=== PATIENT | male | born 1935 | race Hispanic/Latino ===

== ENCOUNTER → 2020-02-03 | Outpatient (CLI) | payer OTHER | END | disposition home or self-care (01) | LOC: RAH 14:11 | PROVIDERS: ATTEND Family Medicine | DX: I73.9 Peripheral vascular disease, unspecified (principal) | CPT/HCPCS: 93925 ==

== ENCOUNTER → 2020-03-29 | Outpatient (CLI) | payer OTHER | END | disposition home or self-care (01) | LOC: SHCH 08:29 | PROVIDERS: ATTEND Internal Medicine Cardiovascular Disease | DX: I87.2 Venous insufficiency (chronic) (peripheral) (principal) | CPT/HCPCS: 93970 ==

== ENCOUNTER → 2021-02-18 | Outpatient (CLI) | payer OTHER | END | disposition home or self-care (01) | LOC: SHCH 14:19 | PROVIDERS: ATTEND Internal Medicine Cardiovascular Disease | DX: I87.2 Venous insufficiency (chronic) (peripheral) (principal) | CPT/HCPCS: 93971 ==

== ENCOUNTER → 2022-07-14 | Outpatient (CLI) | payer OTHER | END | disposition home or self-care (01) | LOC: RAH 10:50 | PROVIDERS: ATTEND Family Medicine | DX: I70.203 Unspecified atherosclerosis of native arteries of extremities, bilateral legs (principal) | CPT/HCPCS: 93925 ==

== ENCOUNTER → 2022-11-04 | Outpatient (CLI) | payer OTHER | END | disposition home or self-care (01) | LOC: SHCH 14:03 | PROVIDERS: ATTEND Internal Medicine Cardiovascular Disease | DX: I87.2 Venous insufficiency (chronic) (peripheral) (principal); I70.203 Unspecified atherosclerosis of native arteries of extremities, bilateral legs | CPT/HCPCS: 93925; 93970 ==

== ENCOUNTER → 2023-02-16 | Outpatient (CLI) | payer OTHER ==
[2023-02-16 12:20] LABS: BASOPHILS # (AUTO) 0.02 K/uL (0.00-0.20); BASOPHILS % (AUTO) 0.3 % (0.0-5.0); EOSINOPHILS # (AUTO) 0.13 K/uL (0.00-0.70); EOSINOPHILS % (AUTO) 2.1 % (0.0-8.0); HEMATOCRIT 40.2 % (42-54); IMMATURE GRANULOCYTE ABSOLUTE 0.02 K/uL (0-1); LYMPHOCYTES # (AUTO) 2.1 K/uL (1.0-4.8); LYMPHOCYTES % (AUTO) 33.2 % (21.0-51.0); MEAN CORPUSCULAR HEMOGLOBIN 30.6 pg (27.0-33.0); MEAN CORPUSCULAR HGB CONC 32.8 g/dL (32.0-36.0); MEAN CORPUSCULAR VOLUME 93.1 fL (79-99); MONOCYTES # (AUTO) 0.4 K/uL (0.1-1.0); MONOCYTES % (AUTO) 7.1 % (3.0-13.0); NEUTROPHILS # (AUTO) 3.6 K/uL (1.8-7.7); PLATELET COUNT (AUTO) 158 K/uL (130-400); RED BLOOD CELL COUNT(AUTO) 4.32 MIL/uL (4.50-6.20); RED CELL DISTRIBUTION WIDTH 12.6 % (11.0-15.5); WHITE BLOOD COUNT (AUTO) 6.2 K/uL (4.8-10.8)
[2023-02-16 12:26] LABS: CREATININE 0.9 mg/dL (0.5-1.5); POTASSIUM 4.1 mmol/L (3.5-5.1)
[2023-02-16 12:27] LABS: INR 0.97 (0.85-1.15); PROTHROMBIN TIME 11.3 SEC (9.6-11.6)
[2023-02-16 12:28] LABS: PARTIAL THROMBOPLASTIN TIME 31.8 SEC (26.3-35.5)
== END | disposition home or self-care (01) ==
LOC: LAB 09:18
PROVIDERS: ATTEND Internal Medicine Cardiovascular Disease
DX: I87.2 Venous insufficiency (chronic) (peripheral) (principal); I87.1 Compression of vein; I73.9 Peripheral vascular disease, unspecified; I10 Essential (primary) hypertension; R60.0 Localized edema; M79.89 Other specified soft tissue disorders; E78.5 Hyperlipidemia, unspecified; Z79.82 Long term (current) use of aspirin; Z79.899 Other long term (current) drug therapy
CPT/HCPCS: 36415; 80048; 85025; 85610; 85730

== ENCOUNTER → 2023-06-30 | Outpatient (CLI) | payer OTHER ==
[2023-06-30 12:11] LABS: BASOPHILS # (AUTO) 0.02 K/uL (0.00-0.20); BASOPHILS % (AUTO) 0.3 % (0.0-5.0); EOSINOPHILS # (AUTO) 0.24 K/uL (0.00-0.70); EOSINOPHILS % (AUTO) 3.5 % (0.0-8.0); HEMATOCRIT 38.6 % (42-54); IMMATURE GRANULOCYTE ABSOLUTE 0.02 K/uL (0-1); LYMPHOCYTES # (AUTO) 2.2 K/uL (1.0-4.8); LYMPHOCYTES % (AUTO) 31.4 % (21.0-51.0); MEAN CORPUSCULAR HEMOGLOBIN 30.9 pg (27.0-33.0); MEAN CORPUSCULAR HGB CONC 33.7 g/dL (32.0-36.0); MEAN CORPUSCULAR VOLUME 91.7 fL (79-99); MONOCYTES # (AUTO) 0.5 K/uL (0.1-1.0); MONOCYTES % (AUTO) 6.9 % (3.0-13.0); NEUTROPHILS % (AUTO) 57.6 % (40.0-77.0); PLATELET COUNT (AUTO) 156 K/uL (130-400); RED BLOOD CELL COUNT(AUTO) 4.21 MIL/uL (4.50-6.20); WHITE BLOOD COUNT (AUTO) 6.9 K/uL (4.8-10.8)
[2023-06-30 12:15] LABS: CREATININE 0.8 mg/dL (0.5-1.3); POTASSIUM 4.5 mmol/L (3.5-5.1)
[2023-06-30 12:22] LABS: INR 0.96 (0.85-1.15); PROTHROMBIN TIME 11.4 SEC (9.6-11.6)
[2023-06-30 12:23] LABS: PARTIAL THROMBOPLASTIN TIME 32.9 SEC (26.3-35.5)
== END | disposition home or self-care (01) ==
LOC: LAB 09:21
PROVIDERS: ATTEND Internal Medicine Cardiovascular Disease
DX: I87.1 Compression of vein (principal); I87.2 Venous insufficiency (chronic) (peripheral); I10 Essential (primary) hypertension; I73.9 Peripheral vascular disease, unspecified; E78.5 Hyperlipidemia, unspecified; M79.605 Pain in left leg; M79.604 Pain in right leg; Z95.820 Peripheral vascular angioplasty status with implants and grafts; Z79.899 Other long term (current) drug therapy; Z79.82 Long term (current) use of aspirin; Z79.02 Long term (current) use of antithrombotics/antiplatelets
CPT/HCPCS: 36415; 80048; 85025; 85610; 85730

== ENCOUNTER → 2023-09-29 | Outpatient (CLI) | payer OTHER ==
[2023-09-29 12:00] LABS: BASOPHILS # (AUTO) 0.02 K/uL (0.00-0.20); BASOPHILS % (AUTO) 0.3 % (0.0-5.0); EOSINOPHILS # (AUTO) 0.16 K/uL (0.00-0.70); EOSINOPHILS % (AUTO) 2.3 % (0.0-8.0); HEMATOCRIT 37.7 % (42-54); IMMATURE GRANULOCYTE ABSOLUTE 0.01 K/uL (0-1); LYMPHOCYTES # (AUTO) 1.9 K/uL (1.0-4.8); LYMPHOCYTES % (AUTO) 27.2 % (21.0-51.0); MEAN CORPUSCULAR HEMOGLOBIN 30.6 pg (27.0-33.0); MEAN CORPUSCULAR VOLUME 90.2 fL (79-99); MONOCYTES # (AUTO) 0.5 K/uL (0.1-1.0); MONOCYTES % (AUTO) 7.4 % (3.0-13.0); NEUTROPHILS # (AUTO) 4.3 K/uL (1.8-7.7); NEUTROPHILS % (AUTO) 62.7 % (40.0-77.0); PLATELET COUNT (AUTO) 149 K/uL (130-400); RED BLOOD CELL COUNT(AUTO) 4.18 MIL/uL (4.50-6.20); RED CELL DISTRIBUTION WIDTH 12.8 % (11.0-15.5); WHITE BLOOD COUNT (AUTO) 6.9 K/uL (4.8-10.8)
[2023-09-29 12:19] LABS: ALBUMIN 3.4 g/dL (3.5-5.0); BILIRUBIN,TOTAL 0.7 mg/dL (0.2-1.0); CREATININE 0.8 mg/dL (0.5-1.3); POTASSIUM 4.5 mmol/L (3.5-5.1); TOTAL PROTEIN, SERUM 7.4 g/dL (6.0-8.3)
== END | disposition home or self-care (01) ==
LOC: LAB 10:44
PROVIDERS: ATTEND Internal Medicine Cardiovascular Disease
DX: R55 Syncope and collapse (principal); R00.1 Bradycardia, unspecified
CPT/HCPCS: 36415; 80053; 83880; 85025

== ENCOUNTER 2023-12-08 21:03 | Observation (INO) | payer OTHER ==
[~2023-12-08] VITALS: Ht 182.9 cm; Wt 98.8 kg
[2023-12-08 21:36] LABS: BASOPHILS # (AUTO) 0.01 K/uL (0.00-0.20); BASOPHILS % (AUTO) 0.1 % (0.0-5.0); EOSINOPHILS # (AUTO) 0.08 K/uL (0.00-0.70); EOSINOPHILS % (AUTO) 0.7 % (0.0-8.0); HEMATOCRIT 37.6 % (42-54); IMMATURE GRANULOCYTE ABSOLUTE 0.03 K/uL (0-1); LYMPHOCYTES # (AUTO) 0.9 K/uL (1.0-4.8); LYMPHOCYTES % (AUTO) 7.9 % (21.0-51.0); MEAN CORPUSCULAR HEMOGLOBIN 30.8 pg (27.0-33.0); MEAN CORPUSCULAR VOLUME 90.6 fL (79-99); MONOCYTES # (AUTO) 0.6 K/uL (0.1-1.0); MONOCYTES % (AUTO) 5.3 % (3.0-13.0); NEUTROPHILS # (AUTO) 9.2 K/uL (1.8-7.7); NEUTROPHILS % (AUTO) 85.7 % (40.0-77.0); PLATELET COUNT (AUTO) 127 K/uL (130-400); RED BLOOD CELL COUNT(AUTO) 4.15 MIL/uL (4.50-6.20); WHITE BLOOD COUNT (AUTO) 10.8 K/uL (4.8-10.8)
[2023-12-08 21:44] LABS: POTASSIUM 3.7 mmol/L (3.5-5.1)
[2023-12-08] MEDS: AZTREONAM 1 GM VIAL IVPB SCH (21:46)
[2023-12-08] MEDS: 0.9%NACL 1000ML 1,551 ML IV ONE (21:46)
[2023-12-08] MEDS: VANCOMYCIN KIT 1 GM/250 ML IV.KIT IV ONE (21:46)
[2023-12-08 21:57] LABS: RAPID GROUP A STREP positive (NEGATIVE)
[2023-12-08] MEDS: INSULIN humuLIN R 100 UNIT/ML 3ML SQ SCH (22:00)
[2023-12-08 22:02] LABS: COVID19 (SARS ANTIGEN RAPID) PRESUMPTIVE NEGATIVE (NEGATIVE); INFLUENZA TYPE A Negative For Type A (NEGATIVE); INFLUENZA TYPE B Negative For Type B (NEGATIVE)
[2023-12-08 23:33] LABS: ADD UA MICROSCOPIC YES; APPEARANCE,URINE CLEAR (CLEAR); BILIRUBIN,URINE NEGATIVE (NEGATIVE); COLOR,URINE YELLOW (YELLOW); GLUCOSE, URINE (UA) NEGATIVE (NEGATIVE); KETONES,URINE NEGATIVE (NEGATIVE); LEUKOCYTE ESTERASE ,URINE NEGATIVE Leu/uL (NEGATIVE); NITRATE,URINE NEGATIVE (NEGATIVE); OCCULT BLOOD,URINE MODERATE (NEGATIVE); PH,URINE 5.5 (5.0-8.0); PROTEIN,URINE 20 mg/dL (NEGATIVE); UROBILINOGEN,URINE 0.2 mg/dL (0.2-1.0)
[2023-12-08 23:34] LABS: MUCUS,URINE RARE LPF (None Seen)
[2023-12-09] VITALS (9 sets, daily range): BP systolic 137–174; BP diastolic 57–74; PULSE 63–68; RESP 18–20; TEMP 98.1–98.9; O2SAT 96–98
[2023-12-09] MEDS ORDERED: LACTULOSE 20 GM/30 ML UDCUP PO PRN (01:00)
[2023-12-09] MEDS ORDERED: doCUSate SODIUM 100 MG CAP PO PRN (01:00)
[2023-12-09] MEDS ORDERED: acetaMINOPHEN 650 MG SUPPOSITORY RC PRN (01:00)
[2023-12-09] MEDS ORDERED: TEMAZepam 15 MG CAPSULE PO PRN (01:00)
[2023-12-09] MEDS ORDERED: acetaMINOPHEN 325 MG TAB PO PRN (01:00)
[2023-12-09] MEDS ORDERED: hydrALAZine 20MG/ML VIAL IV PRN (01:00)
[2023-12-09] MEDS ORDERED: ondanSETRON 4MG INJ IVP PRN (01:00)
[2023-12-09] MEDS ORDERED: HYDROcodone/APAP 5/325 1 TAB TABLET PO PRN (01:00)
[2023-12-09] MEDS: LACTATED RINGERS 1000ML 1,000 ML IV SCH (01:18)
[2023-12-09] MEDS ORDERED: 0.9%NACL 50ML IV SCH (01:20)
[2023-12-09] MEDS: ZOSYN 3.375GM +NS 50ML IVPB SCH (03:08)
[2023-12-09] MEDS ORDERED: VIBE75TA PO (03:28)
[2023-12-09] MEDS ORDERED: METO-408 PO (03:28)
[2023-12-09] MEDS ORDERED: DOXA8TAB81 PO (03:28)
[2023-12-09] MEDS ORDERED: DUTA0.5C37 PO (03:28)
[2023-12-09] MEDS ORDERED: ATOR40TA71 PO (03:28)
[2023-12-09] MEDS ORDERED: AMLO-257 PO (03:28)
[2023-12-09] MEDS ORDERED: LISI40TA9 PO (03:28)
[2023-12-09 06:08] LABS: HEMATOCRIT 35.2 % (42-54); MEAN CORPUSCULAR HEMOGLOBIN 30.5 pg (27.0-33.0); MEAN CORPUSCULAR HGB CONC 33.5 g/dL (32.0-36.0); RED BLOOD CELL COUNT(AUTO) 3.87 MIL/uL (4.50-6.20); RED CELL DISTRIBUTION WIDTH 13.2 % (11.0-15.5); WHITE BLOOD COUNT (AUTO) 16.7 K/uL (4.8-10.8)
[2023-12-09 06:36] LABS: CREATININE 0.8 mg/dL (0.5-1.3); MAGNESIUM 1.8 mg/dL (1.80-2.40); PHOSPHORUS 3.3 mg/dL (2.5-4.9); POTASSIUM 4.1 mmol/L (3.5-5.1); THYROID STIMULATING HORMONE 0.99 uIU/mL (0.36-3.74)
[2023-12-09 06:58] LABS: HEMOGLOBIN A1C 5.8 % (4.0-6.0)
[2023-12-09] MEDS: ceFEPime HCL 2 GM VIAL IVPB SCH (17:43)
[2023-12-10] VITALS (8 sets, daily range): BP systolic 142–157; BP diastolic 58–77; PULSE 61–68; RESP 17–20; TEMP 97.7–99.3; O2SAT 97–98
[2023-12-10 05:23] LABS: BASOPHILS # (AUTO) 0.02 K/uL (0.00-0.20); BASOPHILS % (AUTO) 0.2 % (0.0-5.0); EOSINOPHILS # (AUTO) 0.15 K/uL (0.00-0.70); EOSINOPHILS % (AUTO) 1.4 % (0.0-8.0); HEMATOCRIT 33.8 % (42-54); IMMATURE GRANULOCYTE ABSOLUTE 0.04 K/uL (0-1); LYMPHOCYTES # (AUTO) 2.1 K/uL (1.0-4.8); LYMPHOCYTES % (AUTO) 20.2 % (21.0-51.0); MEAN CORPUSCULAR HEMOGLOBIN 31.3 pg (27.0-33.0); MEAN CORPUSCULAR HGB CONC 34.6 g/dL (32.0-36.0); MEAN CORPUSCULAR VOLUME 90.4 fL (79-99); MONOCYTES # (AUTO) 1.1 K/uL (0.1-1.0); MONOCYTES % (AUTO) 10.2 % (3.0-13.0); NEUTROPHILS # (AUTO) 7.1 K/uL (1.8-7.7); NEUTROPHILS % (AUTO) 67.6 % (40.0-77.0); PLATELET COUNT (AUTO) 122 K/uL (130-400); RED BLOOD CELL COUNT(AUTO) 3.74 MIL/uL (4.50-6.20); RED CELL DISTRIBUTION WIDTH 13.1 % (11.0-15.5); WHITE BLOOD COUNT (AUTO) 10.5 K/uL (4.8-10.8)
[2023-12-10 05:36] LABS: CREATININE 0.9 mg/dL (0.5-1.3); MAGNESIUM 1.7 mg/dL (1.80-2.40); PHOSPHORUS 3.3 mg/dL (2.5-4.9); POTASSIUM 3.6 mmol/L (3.5-5.1)
[2023-12-10] MEDS ORDERED: METO-408 PO (09:47)
[2023-12-10] MEDS ORDERED: PoTASSium chl 10% ELIXIR 20MEQ 20 MEQ/15 ML UDCUP PO PRN (14:00)
[2023-12-10] MEDS ORDERED: PoTASSium chloRIDE 20MEQ/100ML 100 ML IV PRN (14:00)
[2023-12-10] MEDS: DOXAZOSIN MESYLATE 2 MG TABLET PO SCH (14:17)
[2023-12-10] MEDS: PoTASSium chloRIDE 20MEQ ER 20 MEQ ERTAB PO PRN (14:18)
[2023-12-10] MEDS: MAGNESIUM 2GM PREMIX 50ML 50 ML IV PRN (20:55)
[2023-12-11] VITALS: BP 140/66; PULSE 66; RESP 20; TEMP 98.6
[2023-12-11 04:00] VITALS: BP 134/59; PULSE 58; RESP 20; TEMP 98.5
[2023-12-11 05:08] LABS: BASOPHILS # (AUTO) 0.02 K/uL (0.00-0.20); BASOPHILS % (AUTO) 0.3 % (0.0-5.0); EOSINOPHILS # (AUTO) 0.18 K/uL (0.00-0.70); EOSINOPHILS % (AUTO) 2.6 % (0.0-8.0); HEMATOCRIT 31.3 % (42-54); IMMATURE GRANULOCYTE ABSOLUTE 0.02 K/uL (0-1); LYMPHOCYTES # (AUTO) 1.9 K/uL (1.0-4.8); LYMPHOCYTES % (AUTO) 26.5 % (21.0-51.0); MEAN CORPUSCULAR HEMOGLOBIN 30.5 pg (27.0-33.0); MEAN CORPUSCULAR HGB CONC 34.2 g/dL (32.0-36.0); MEAN CORPUSCULAR VOLUME 89.2 fL (79-99); MONOCYTES # (AUTO) 0.7 K/uL (0.1-1.0); NEUTROPHILS # (AUTO) 4.2 K/uL (1.8-7.7); NEUTROPHILS % (AUTO) 60.3 % (40.0-77.0); PLATELET COUNT (AUTO) 129 K/uL (130-400); RED BLOOD CELL COUNT(AUTO) 3.51 MIL/uL (4.50-6.20)
[2023-12-11 05:27] LABS: CREATININE 0.8 mg/dL (0.5-1.3); POTASSIUM 3.8 mmol/L (3.5-5.1)
[2023-12-11 08:00] VITALS: BP 155/85; PULSE 62; RESP 18; TEMP 98.2
[2023-12-11] MEDS ORDERED: AMOX-426 PO (08:08)
[2023-12-11 09:00] VITALS: O2SAT 96
[2023-12-11] MEDS: LISINOPRIL 40 MG TABLET PO SCH (09:00)
[2023-12-11] MEDS: atorVAStatin 40 MG TABLET PO SCH (09:00)
[2023-12-11] MEDS: amLODIPine 5 MG TAB PO SCH (09:00)
[2023-12-11] MEDS: metOPROLol sucCINATE 25 MG TAB.SR.24H PO SCH (09:00)
[2023-12-11 12:00] VITALS: BP 149/66; PULSE 69; RESP 18; TEMP 98.1
== END 2023-12-11 14:00 | disposition home or self-care (01) ==
LOC: EDH 21:03 → EDHIP 12-09 00:36 → 3BH 12-09 02:51
PROVIDERS: ADMIT Internal Medicine Critical Care Medicine; ATTEND Internal Medicine Critical Care Medicine
DX: N10 Acute pyelonephritis (principal); N30.91 Cystitis, unspecified with hematuria; J02.0 Streptococcal pharyngitis; I10 Essential (primary) hypertension; N40.0 Benign prostatic hyperplasia without lower urinary tract symptoms; E78.00 Pure hypercholesterolemia, unspecified; Z79.899 Other long term (current) drug therapy; Z98.890 Other specified postprocedural states; Z20.822 Contact with and (suspected) exposure to COVID-19
CPT/HCPCS: 96365; 96375 ×2; 99285; 82550; 84484; 80048 ×4; 85025 ×3; 87040; 87086; 87880; 87804 ×2; 83605; 87426; 81001; 36415 ×4; 71045; 74176; 93005; 96376; 96361; 96366 ×3; 96367; 83036; 84443; 83735 ×2; 84100 ×2; 85027; 82948 ×6; G0378 ×61; A4600 ×2; J7030; J3370; J3490 ×3; J7120; J2543 ×2; J0692 ×3; J3475